=== PATIENT | male | born 1995 | race Caucasian/White ===

== ENCOUNTER 2019-10-26 12:38 | Emergency (ER) | payer OTHER ==
[~2019-10-26] VITALS: Ht 177.8 cm; Wt 95.3 kg
[2019-10-26] MEDS ORDERED: PEPCID20 MG PO (13:39)
[2019-10-26] MEDS ORDERED: INTESTINEX680 M2 PO (13:39)
== END 2019-10-26 13:31 | disposition home or self-care (01) ==
LOC: ER 12:38
DX: K52.89 Other specified noninfective gastroenteritis and colitis (principal); R10.32 Left lower quadrant pain

== ENCOUNTER 2020-04-06 03:36 | Emergency (ER) | payer OTHER ==
[~2020-04-06] VITALS: Ht 177.8 cm; Wt 90.3 kg
[~2020-04-06 03:36] MED LIST: INTESTINEX680 M2 PO; PEPCID20 MG PO
[2020-04-06] MEDS ORDERED: ZITHROMAX500 MG PO (06:01)
== END 2020-04-06 06:52 | disposition home or self-care (01) ==
LOC: ER 03:36
DX: N39.0 Urinary tract infection, site not specified (principal); A63.8 Other specified predominantly sexually transmitted diseases; Z03.818 Encounter for observation for suspected exposure to other biological agents ruled out

== ENCOUNTER 2021-02-03 12:55 | Emergency (ER) | payer OTHER ==
[~2021-02-03] VITALS: Ht 177.8 cm; Wt 97.5 kg
[~2021-02-03 12:55] MED LIST changes: +ZITHROMAX500 MG PO
[2021-02-03] MEDS ORDERED: ORPHENADRINE C100 MG PO (17:01)
[2021-02-03] MEDS ORDERED: DICLOFENAC POTA50 MG PO (17:01)
== END 2021-02-03 17:41 ==
LOC: ER 12:55
DX: R10.9 Unspecified abdominal pain (principal); M62.838 Other muscle spasm

== ENCOUNTER 2021-03-25 16:00 | Emergency (ER) | payer OTHER ==
[~2021-03-25] VITALS: Ht 177.8 cm; Wt 95.3 kg
[~2021-03-25 16:00] MED LIST changes: +DICLOFENAC POTA50 MG PO; +ORPHENADRINE C100 MG PO
[2021-03-25] MEDS ORDERED: BIKTARVY 50-201 EACH (16:16)
== END 2021-03-25 18:34 | disposition home or self-care (01) ==
LOC: ER 16:00
DX: A54.9 Gonococcal infection, unspecified (principal)